=== PATIENT | female | born 2000 | race Two or more races ===

== ENCOUNTER → 2024-02-25 09:33 | Outpatient (REF) | payer OTHER, SELFPAY ==
[2024-02-26 14:45] LABS: Varicella Zoster IgG (VZV) Positive
[2024-02-27 09:13] LABS: Quantiferon Mitogen minus NIL 9.97 IU/mL; Quantiferon NIL 0.03 IU/mL; Quantiferon TB Gold Plus Negative (Negative)
== END ==
LOC: OHS 09:33
PROVIDERS: ATTENDING PHYSICIAN Nurse Practitioner Family
DX: Z23 Encounter for immunization (principal)
CPT/HCPCS: 36415; 86480; 86787

== ENCOUNTER → 2024-05-05 10:09 | Outpatient (REF) | payer BC, SELFPAY ==
[2024-05-05 11:49] LABS: % Basophils 0.2 % (0-2); % Eosinophils 0.4 % (0-6); % Immature Granulocytes 0.4 % (0-0.5); % Lymphocytes 13.4 % (20.5-51.1); % Monocytes 6.4 % (1.7-9.3); % Neutrophils 79.2 % (42.2-75.2); Absolute Lymphocytes 1.1 10^3/uL (1.2-3.4); Absolute Monocytes 0.5 10^3/uL (0.1-0.6); Absolute Neutrophils 6.5 10^3/uL (1.4-6.5); Hematocrit 35.6 % (37.0-47.0); Hemoglobin 12.1 g/dL (12.0-16.0); Mean Corpuscular Hgb 31.8 pg (27.0-31.0); Mean Corpuscular Volume 93.7 fL (81.0-99.0); Nucleated Red Blood Cells % 0 %; Platelet Count 285 10^3/uL (130-400); Red Cell Dist. Width 11.9 % (11.5-14.5); White Blood Cell Count 8.2 10^3/uL (4.8-10.8)
[2024-05-05 12:43] LABS: Urine Albumin Trace (Neg - Trace); Urine Bilirubin Negative (Negative); Urine Character Clear (Clear); Urine Color Yellow; Urine Glucose Negative (Negative); Urine Ketone Negative (Negative); Urine Leukocyte 2+ (Negative); Urine Nitrite Negative (Negative); Urine Occult Blood 3+ (Negative); Urine Urobilinogen Negative (Neg - 1+)
[2024-05-05 12:50] LABS: Hepatitis B Surface Antigen Negative (Negative)
[2024-05-05 13:05] LABS: Hepatitis C Antibody Negative (Negative)
[2024-05-05 13:22] LABS: Rubella Negative
[2024-05-05 13:27] LABS: Urine Bacteria Moderate (Negative); Urine Squamous Cell 16-20 /LPF (Few)
[2024-05-05 15:12] LABS: Syphilis/T. pallidum Ab Reflex Negative (Negative)
[2024-05-07 22:50] LABS: Hepatitis D Antibody Negative (Negative)
== END ==
LOC: REG 10:09
PROVIDERS: ATTENDING PHYSICIAN Physician Assistant Medical; FAMILY PHYSICIAN Family Medicine
DX: Z34.02 Encounter for supervision of normal first pregnancy, second trimester (principal)
CPT/HCPCS: 36415; 80055; 81003; 81015; 86692; 86803; 86850; 86900; 86901; 87086

== ENCOUNTER → 2024-05-11 08:13 | Outpatient (REF) | payer BC, SELFPAY | LOC: PNTC 08:13 | PROVIDERS: ATTENDING PHYSICIAN Obstetrics & Gynecology | DX: O09.30 Supervision of pregnancy with insufficient antenatal care, unspecified trimester (principal) | CPT/HCPCS: 36415; 76805 ==

== ENCOUNTER → 2024-06-05 16:11 | Outpatient (REF) | payer BC, SELFPAY ==
[2024-06-05 17:44] LABS: % Basophils 0.3 % (0-2); % Eosinophils 0.8 % (0-6); % Immature Granulocytes 0.3 % (0-0.5); % Lymphocytes 17.6 % (20.5-51.1); % Monocytes 6.4 % (1.7-9.3); % Neutrophils 74.6 % (42.2-75.2); Absolute Eosinophils 0.1 10^3/uL (0-0.7); Absolute Lymphocytes 1.6 10^3/uL (1.2-3.4); Absolute Monocytes 0.6 10^3/uL (0.1-0.6); Absolute Neutrophils 6.6 10^3/uL (1.4-6.5); Hematocrit 35.4 % (37.0-47.0); Hemoglobin 12.2 g/dL (12.0-16.0); Mean Corp Hgb Conc. 34.5 g/dL (33.0-37.0); Mean Corpuscular Hgb 30.7 pg (27.0-31.0); Mean Corpuscular Volume 88.9 fL (81.0-99.0); Mean Platelet Volume 9.4 fL (7.4-10.4); Nucleated Red Blood Cells % 0 %; Platelet Count 283 10^3/uL (130-400); Red Blood Cell Count 3.98 10^6/uL (4.20-5.40); Red Cell Dist. Width 11.9 % (11.5-14.5); White Blood Cell Count 8.9 10^3/uL (4.8-10.8)
[2024-06-05 17:54] LABS: 1 Hour after 50gm 70 mg/dl
[2024-06-05 18:40] LABS: HIV Combo Negative (Negative)
== END ==
LOC: REG 16:11
PROVIDERS: ATTENDING PHYSICIAN Obstetrics & Gynecology; FAMILY PHYSICIAN Student in an Organized Health Care Education/Training Program
DX: Z34.02 Encounter for supervision of normal first pregnancy, second trimester (principal); Z13.1 Encounter for screening for diabetes mellitus
CPT/HCPCS: 36415; 82950; 85025; 86780; 87389

== ENCOUNTER → 2024-08-18 15:20 | Outpatient (REF) | payer BC, SELFPAY | LOC: CLAB 15:20 | PROVIDERS: ATTENDING PHYSICIAN Obstetrics & Gynecology | DX: Z36.85 Encounter for antenatal screening for Streptococcus B (principal) | CPT/HCPCS: 87070 ==

== ENCOUNTER → 2024-09-02 10:02 | Outpatient (REF) | payer BC, SELFPAY | LOC: PNTC 10:02 | PROVIDERS: ATTENDING PHYSICIAN Obstetrics & Gynecology | DX: O36.8190 Decreased fetal movements, unspecified trimester, not applicable or unspecified (principal) | CPT/HCPCS: 59025; 76815 ==

== ENCOUNTER → 2024-09-17 11:01 | Outpatient (REF) | payer BC, SELFPAY | LOC: PNTC 11:01 | PROVIDERS: ATTENDING PHYSICIAN Obstetrics & Gynecology | DX: O48.0 Post-term pregnancy (principal) | CPT/HCPCS: 59025; 76816 ==

== ENCOUNTER 2024-09-18 01:35 | Inpatient (IN) | payer BC, SELFPAY ==
[2024-09-18 01:52] VITALS: BP 109/60; BMI 28.7
[2024-09-18] MEDS: LR 1000 IV ×2 (02:15→04:38)
[2024-09-18 02:40] LABS: % Basophils 0.2 % (0-2); % Eosinophils 0.1 % (0-6); % Immature Granulocytes 0.4 % (0-0.5); % Lymphocytes 6.5 % (20.5-51.1); % Monocytes 2.9 % (1.7-9.3); % Neutrophils 89.9 % (42.2-75.2); Absolute Immature Granulocytes 0.1 10^3/uL (0-0.05); Absolute Monocytes 0.4 10^3/uL (0.1-0.6); Absolute Neutrophils 13.5 10^3/uL (1.4-6.5); Hemoglobin 12.4 g/dL (12.0-16.0); Mean Corp Hgb Conc. 34.4 g/dL (33.0-37.0); Mean Corpuscular Hgb 30.5 pg (27.0-31.0); Mean Corpuscular Volume 88.7 fL (81.0-99.0); Mean Platelet Volume 10.1 fL (7.4-10.4); Nucleated Red Blood Cells % 0 %; Platelet Count 240 10^3/uL (130-400); Red Blood Cell Count 4.06 10^6/uL (4.20-5.40)
[2024-09-18 02:53] LABS: ALT (SGPT) 29 U/L (0-35); AST (SGOT) 28 U/L (14-36); Albumin 4.1 g/dl (3.5-5.0); Alkaline Phosphatase 244 U/L (38-126); Blood Urea Nitrogen 5 mg/dl (7-17); Calcium 9.1 mg/dl (8.4-10.2); Carbon Dioxide 19 mmol/L (22-30); Chloride 101 mmol/L (98-107); Estimated Creatinine Clearance > 125 ml/min; Glucose 96 mg/dl (70-99); Potassium 3.8 mmol/L (3.5-5.1); Sodium 132 mmol/L (135-145); Total Bilirubin 0.5 mg/dl (0.2-1.3); Total Protein 7.1 g/dl (6.3-8.2); eGFR > 60.00
[2024-09-18 02:54] LABS: Amphetamines Negative (Negative); Barbiturates Negative (Negative); Benzodiazepines Negative (Negative); Buprenorphine Negative (Negative); Cocaine Negative (Negative); Marijuana Negative (Negative); Methadone Negative (Negative); Methamphetamines Negative (Negative); Opiates Negative (Negative); Phencyclidine Negative (Negative); Tricyclic Antidepressants Negative (Negative)
[2024-09-18] MEDS: SUBLIMAZE 100 MCG EPIDURAL (03:06)
[2024-09-18] MEDS: FENTANYL/BUPIVACAINE 100 EPIDURAL ×2 (03:06→11:37)
[2024-09-18] MEDS: ZOFRAN 4 MG IV (03:18)
[2024-09-18] MEDS: PITOCIN 30 UNITS/NSS 500 ML IV (12:00)
[2024-09-18] MEDS: METHERGINE INJECTION 0.2 MG IM (12:13)
[2024-09-18] MEDS: XYLOCAINE-MPF 1% VIAL 30 ML INFIL (12:15)
[2024-09-18] MEDS: CYTOTEC 800 MCG RECTAL (12:30)
[2024-09-18] MEDS: SENOKOT-S 1 TABLET PO (19:00)
[2024-09-18] MEDS: MOTRIN 600 MG PO (19:00)
[2024-09-19] MEDS: TYLENOL 650 MG PO ×5 (01:07→22:19)
[2024-09-19] MEDS: MOTRIN 600 MG PO ×4 (01:07→20:10)
[2024-09-19 06:03] LABS: Hematocrit 27.5 % (37.0-47.0); Hemoglobin 9.3 g/dL (12.0-16.0)
[2024-09-19] MEDS: PRENATAL PLUS 1 TABLET PO (08:04)
[2024-09-19] MEDS: SENOKOT-S 1 TABLET PO (08:04)
[2024-09-19] MEDS: FEOSOL 325 MG PO (17:18)
[2024-09-20] MEDS: TYLENOL 650 MG PO ×2 (02:29→08:31)
[2024-09-20] MEDS: MOTRIN 600 MG PO ×2 (02:29→08:31)
[2024-09-20] MEDS: PRENATAL PLUS 1 TABLET PO (08:31)
[2024-09-20] MEDS: M-M-R II 0.5 ML SC (08:32)
[2024-09-22 11:30] LABS: Syphilis/T. pallidum Ab Reflex Negative (Negative)
== END 2024-09-20 12:15 | disposition home or self-care (01) | DRG 768 ==
LOC: LDRP 01:35
PROVIDERS: Obstetrics & Gynecology; Student in an Organized Health Care Education/Training Program; ADMITTING PHYSICIAN Obstetrics & Gynecology; FAMILY PHYSICIAN Student in an Organized Health Care Education/Training Program
PROC: 0W3R3ZZ Control Bleeding in Genitourinary Tract, Percutaneous Approach (ICD-10-PCS; 2024-09-18)
PROC: 10D07Z6 Extraction of Products of Conception, Vacuum, Via Natural or Artificial Opening (ICD-10-PCS; 2024-09-18)
PROC: 0KQM0ZZ Repair Perineum Muscle, Open Approach (ICD-10-PCS; 2024-09-18)
PROC: 10907ZC Drainage of Amniotic Fluid, Therapeutic from Products of Conception, Via Natural or Artificial Opening (ICD-10-PCS; 2024-09-18)
PROC: 3E0234Z Introduction of Serum, Toxoid and Vaccine into Muscle, Percutaneous Approach (ICD-10-PCS; 2024-09-20)
DX: O48.0 Post-term pregnancy (principal); Z37.0 Single live birth; O72.1 Other immediate postpartum hemorrhage; O75.81 Maternal exhaustion complicating labor and delivery; Z3A.40 40 weeks gestation of pregnancy; Z23 Encounter for immunization; O76 Abnormality in fetal heart rate and rhythm complicating labor and delivery; O69.81X0 Labor and delivery complicated by cord around neck, without compression, not applicable or unspecified; O70.1 Second degree perineal laceration during delivery; O77.0 Labor and delivery complicated by meconium in amniotic fluid
CPT/HCPCS: 36415; 80053; 80306; 85014; 85018; 85025; 86780; 86850; 86900; 86901; 90707

== ENCOUNTER → 2025-05-28 07:02 | Outpatient (REF) | payer BC, SELFPAY ==
[2025-05-28 08:10] LABS: Hematocrit 43.3 % (37.0-47.0); Hemoglobin 14.2 g/dL (12.0-16.0); Mean Corp Hgb Conc. 32.8 g/dL (33.0-37.0); Mean Corpuscular Volume 91.7 fL (81.0-99.0); Nucleated Red Blood Cells % 0 %; Platelet Count 350 10^3/uL (130-400); Red Cell Dist. Width 12.0 % (11.5-14.5)
[2025-05-28 08:58] LABS: ALT (SGPT) 16 U/L (0-35); AST (SGOT) 18 U/L (14-36); Albumin 5.3 g/dl (3.5-5.0); Alkaline Phosphatase 116 U/L (38-126); Blood Urea Nitrogen 11 mg/dl (7-17); Calcium 9.5 mg/dl (8.4-10.2); Carbon Dioxide 26 mmol/L (22-30); Chloride 104 mmol/L (98-107); Glucose 87 mg/dl (70-99); Potassium 4.5 mmol/L (3.5-5.1); Sodium 140 mmol/L (135-145); Total Protein 8.3 g/dl (6.3-8.2); eGFR > 60.00
== END ==
LOC: REG 07:02
PROVIDERS: ATTENDING PHYSICIAN Student in an Organized Health Care Education/Training Program
DX: G43.909 Migraine, unspecified, not intractable, without status migrainosus (principal)
CPT/HCPCS: 36415; 80053; 84443; 85025

== ENCOUNTER → 2025-07-02 07:16 | Outpatient (REF) | payer BC, SELFPAY ==
[2025-07-02 08:43] LABS: ALT (SGPT) 15 U/L (0-35); AST (SGOT) 17 U/L (14-36); Albumin 4.8 g/dl (3.5-5.0); Alkaline Phosphatase 105 U/L (38-126); Blood Urea Nitrogen 8 mg/dl (7-17); Calcium 9.3 mg/dl (8.4-10.2); Carbon Dioxide 26 mmol/L (22-30); Chloride 104 mmol/L (98-107); Glucose 87 mg/dl (70-99); Potassium 4.3 mmol/L (3.5-5.1); Sodium 136 mmol/L (135-145); Total Protein 8.0 g/dl (6.3-8.2); eGFR > 60.00
== END ==
LOC: REG 07:16
DX: R89.9 Unspecified abnormal finding in specimens from other organs, systems and tissues (principal)
CPT/HCPCS: 36415; 80053